=== PATIENT | male | born 1950 | race Caucasian/White ===

== ENCOUNTER 2021-04-22 09:30 | Inpatient (IN) ==
[2021-04-22] MEDS ORDERED: SODIUM CHLORIDE 0.9% 1,000 ML IV STA (10:15)
[2021-04-22 11:51] LABS: Alanine Aminotransferase 27 U/L (16-61); Albumin 4.1 G/DL (3.4-5.0); Alkaline Phosphatase 82 U/L (45-117); Aspartate Amino Transferase 35 U/L (0-37); Blood Urea Nitrogen 12 MG/DL (7-18); Calcium 9.6 MG/DL (8.5-10.1); Carbon Dioxide 26 MMOL/L (21-32); Estimated Glom Filtration Rate 101 ML/MIN; Glucose 105 MG/DL (74-106); Osmolality,Calculated 272.8 MOS/KG (273-304); Potassium 4.1 MMOL/L (3.5-5.1); Sodium 137 MMOL/L (136-145); Total Protein 7.5 G/DL (6.4-8.2)
[2021-04-22 11:53] LABS: Basophils % 0.3 % (0.0-0.8); Hematocrit 51.8 VOL% (42.0-52.0); Hemoglobin 17.9 GM/DL (14.0-18.0); Immature Granulocytes % 0.3 %; Immature Granulocytes Absolute 0.03 #; Lymphocytes # 1.1 10*3/uL (1.4-4.0); Lymphocytes % 10.7 % (21.2-54.2); Mean Corpuscular HGB Conc 34.6 GM/DL (32-36); Mean Corpuscular Volume 97.4 FL (87-102); Mean Platelet Volume 9.9 FL (9.6-12.0); Neutrophils % 81.7 % (38.7-73.9); Platelet Count 260 T/CUMM (130-400); Red Blood Count 5.32 MC/CUMM (3.8-5.5); Red Cell Distribution Width 12.8 % (9.3-17.3); Risk Ratio 2.53; VLDL Cholesterol 15.2 MG/DL; White Blood Count 9.8 T/CUMM (4-12)
[2021-04-22 11:55] LABS: PT Patient Result 11.6 SECS (10.5-12.0); Partial Thromboplastin Time 31.6 SECS (23.8-32.1)
[2021-04-22] MEDS ORDERED: DEXTROSE 10% 250 ML BAG IV PRN (12:42)
[2021-04-22] MEDS ORDERED: ACETAMINOPHEN 325 MG TABLET PO PRN (12:42)
[2021-04-22] MEDS ORDERED: DOCUSATE SODIUM 100 MG CAPSULE PO PRN (12:42)
[2021-04-22] MEDS ORDERED: ONDANSETRON 4 MG/2 ML VIAL IV PRN (12:42)
[2021-04-22] MEDS ORDERED: GLUCAGON 1 MG VIAL IM PRN (12:42)
[2021-04-22] MEDS ORDERED: hydrALAZINE 20 MG/1 ML VIAL IV PRN (13:02)
[2021-04-22 14:55] LABS: Amorphous Crystals,Urine Occasional /HPF (Few); Bilirubin,Urine Negative (Negative); Blood, Urine Small mg/dL (Negative); Glucose,Urine (UA) Negative (Negative); Ketones,Urine 20 mg/dL (Negative); Mucus,Urine Occasional /LPF (Occasional); Nitrite,Urine Negative (Negative); Protein,Urine Negative; RBC,Urine 2 /HPF (0-4); Squamous Epithelial Cell,Urine Occasional /HPF (0-10); Urine Appearance Slightly Hazy (Clear); Urine Color Yellow (Yellow); Urine Specific Gravity 1.019 (1.001-1.035); Urine Urobilinogen < 2.0 EU/DL (<2.0)
[2021-04-22] MEDS: LACTATED RINGERS 1,000 ML IV SCH (17:00)
[2021-04-22 17:21] LABS: Barbiturates Screen,Urine Negative (Negative); Benzodiazepines Screen,Urine Negative (Negative); Cannabinoid Screen,Urine Negative (Negative); Opiate Screen,Urine Negative (Negative); Phencyclidine Screen,Urine Negative (Negative)
[2021-04-22] MEDS: INSULIN LISPRO 100 UNIT/ML SUBCUT SCH ×2 (18:59→21:48)
[2021-04-22] MEDS: ENOXAPARIN 40 MG/0.4 ML SYRINGE SUBCUT SCH (22:04)
[2021-04-22] MEDS: ATORVASTATIN 40 MG TABLET PO SCH (22:04)
[2021-04-23 05:33] LABS: Basophils % 0.5 % (0.0-0.8); Eosinophils # 0.1 10*3/uL (0.0-0.87); Eosinophils % 0.9 % (0.00-10.9); Hemoglobin 16.5 GM/DL (14.0-18.0); Immature Granulocytes % 0.4 %; Immature Granulocytes Absolute 0.03 #; Lymphocytes # 2.3 10*3/uL (1.4-4.0); Lymphocytes % 27.8 % (21.2-54.2); Mean Corpuscular HGB Conc 34.4 GM/DL (32-36); Mean Platelet Volume 9.7 FL (9.6-12.0); Monocytes % 8.9 % (1.7-12.7); Neutrophils % 61.5 % (38.7-73.9); Platelet Count 235 T/CUMM (130-400); White Blood Count 8.2 T/CUMM (4-12)
[2021-04-23 05:51] LABS: Calcium 8.8 MG/DL (8.5-10.1); Osmolality,Calculated 275.7 MOS/KG (273-304); Potassium 4.3 MMOL/L (3.5-5.1)
[2021-04-23] MEDS ORDERED: INFLUENZA VIRUS VACCINE 0.5 ML SYRINGE IM ONE (09:00)
[2021-04-23] MEDS: INSULIN LISPRO 100 UNIT/ML SUBCUT SCH ×4 (10:13→21:17)
[2021-04-23] MEDS: ASPIRIN 325 MG TABLET PO SCH (10:13)
[2021-04-23] MEDS ORDERED: ALBUTEROL/IPRATROPIUM 3 ML NEB RESP TX PRN (10:22)
[2021-04-23] MEDS: LACTATED RINGERS 1,000 ML IV SCH ×2 (17:01→20:15)
[2021-04-23] MEDS: ENOXAPARIN 40 MG/0.4 ML SYRINGE SUBCUT SCH (20:37)
[2021-04-23] MEDS: ATORVASTATIN 40 MG TABLET PO SCH (20:38)
[2021-04-24 06:38] LABS: Basophils % 0.5 % (0.0-0.8); Eosinophils # 0.2 10*3/uL (0.0-0.87); Eosinophils % 2.8 % (0.00-10.9); Hematocrit 43.3 VOL% (42.0-52.0); Hemoglobin 14.7 GM/DL (14.0-18.0); Immature Granulocytes % 0.5 %; Immature Granulocytes Absolute 0.03 #; Lymphocytes # 1.7 10*3/uL (1.4-4.0); Lymphocytes % 25.5 % (21.2-54.2); Mean Corpuscular HGB Conc 33.9 GM/DL (32-36); Mean Corpuscular Volume 98.4 FL (87-102); Mean Platelet Volume 9.4 FL (9.6-12.0); Monocytes % 9.1 % (1.7-12.7); Neutrophils % 61.6 % (38.7-73.9); Platelet Count 198 T/CUMM (130-400); Red Cell Distribution Width 12.7 % (9.3-17.3); White Blood Count 6.5 T/CUMM (4-12)
[2021-04-24 06:57] LABS: Calcium 8.4 MG/DL (8.5-10.1); Osmolality,Calculated 278.5 MOS/KG (273-304); Potassium 3.5 MMOL/L (3.5-5.1)
[2021-04-24] MEDS: INSULIN LISPRO 100 UNIT/ML SUBCUT SCH ×4 (07:23→20:25)
[2021-04-24] MEDS: LACTATED RINGERS 1,000 ML IV SCH ×2 (08:22→17:05)
[2021-04-24] MEDS: PANTOPRAZOLE 40 MG TABLET PO SCH (09:00)
[2021-04-24] MEDS: ASPIRIN 325 MG TABLET PO SCH (09:00)
[2021-04-24] MEDS: NICOTINE 21 MG/24 HR PATCH TRANSDERM SCH (09:01)
[2021-04-24] MEDS: ATORVASTATIN 40 MG TABLET PO SCH (20:25)
[2021-04-24] MEDS: ENOXAPARIN 40 MG/0.4 ML SYRINGE SUBCUT SCH (20:26)
[2021-04-25 05:29] LABS: Calcium 8.6 MG/DL (8.5-10.1); Osmolality,Calculated 278.4 MOS/KG (273-304); Potassium 3.7 MMOL/L (3.5-5.1)
[2021-04-25] MEDS: INSULIN LISPRO 100 UNIT/ML SUBCUT SCH ×4 (07:14→20:03)
[2021-04-25] MEDS: PANTOPRAZOLE 40 MG TABLET PO SCH (09:06)
[2021-04-25] MEDS: ASPIRIN 325 MG TABLET PO SCH (09:06)
[2021-04-25] MEDS: NICOTINE 21 MG/24 HR PATCH TRANSDERM SCH (09:07)
[2021-04-25] MEDS: LACTATED RINGERS 1,000 ML IV SCH (12:45)
[2021-04-25] MEDS: HYDROCORTISONE 1% CREAM 28 GM TUBE TOP SCH ×2 (18:00→20:09)
[2021-04-25] MEDS: ATORVASTATIN 40 MG TABLET PO SCH (20:06)
[2021-04-25] MEDS: ENOXAPARIN 40 MG/0.4 ML SYRINGE SUBCUT SCH (20:06)
[2021-04-26 05:47] LABS: Basophils # 0.1 10*3/uL (0.0-0.2); Basophils % 0.7 % (0.0-0.8); Eosinophils # 0.3 10*3/uL (0.0-0.87); Eosinophils % 4.5 % (0.00-10.9); Hematocrit 42.7 VOL% (42.0-52.0); Hemoglobin 14.6 GM/DL (14.0-18.0); Immature Granulocytes % 0.4 %; Immature Granulocytes Absolute 0.03 #; Lymphocytes # 1.9 10*3/uL (1.4-4.0); Mean Corpuscular HGB Conc 34.2 GM/DL (32-36); Mean Corpuscular Volume 98.8 FL (87-102); Mean Platelet Volume 10.1 FL (9.6-12.0); Neutrophils % 60.4 % (38.7-73.9); Platelet Count 215 T/CUMM (130-400); Red Blood Count 4.32 MC/CUMM (3.8-5.5); Red Cell Distribution Width 12.6 % (9.3-17.3); White Blood Count 7.3 T/CUMM (4-12)
[2021-04-26 06:11] LABS: Calcium 8.3 MG/DL (8.5-10.1); Osmolality,Calculated 278.4 MOS/KG (273-304); Potassium 3.5 MMOL/L (3.5-5.1)
[2021-04-26] MEDS: PANTOPRAZOLE 40 MG TABLET PO SCH (09:04)
[2021-04-26] MEDS: HYDROCORTISONE 1% CREAM 28 GM TUBE TOP SCH (09:04)
[2021-04-26] MEDS: ASPIRIN 325 MG TABLET PO SCH (09:04)
[2021-04-26] MEDS: NICOTINE 21 MG/24 HR PATCH TRANSDERM SCH (09:21)
[2021-04-26] MEDS: INSULIN LISPRO 100 UNIT/ML SUBCUT SCH ×4 (10:38→21:24)
[2021-04-26] MEDS: CALAMINE LOTION 180 ML BOTTLE TOP PRN (13:38)
[2021-04-26] MEDS: diphenhydrAMINE CAP 25 MG CAPSULE PO PRN (13:38)
[2021-04-26] MEDS: FUROSEMIDE 40 MG TABLET PO SCH (16:44)
[2021-04-26] MEDS: ATORVASTATIN 40 MG TABLET PO SCH (21:14)
[2021-04-26] MEDS: ENOXAPARIN 40 MG/0.4 ML SYRINGE SUBCUT SCH (21:14)
[2021-04-27] MEDS: diphenhydrAMINE CAP 25 MG CAPSULE PO PRN ×2 (02:04→13:15)
[2021-04-27] MEDS: CALAMINE LOTION 180 ML BOTTLE TOP PRN (02:05)
[2021-04-27] MEDS: INSULIN LISPRO 100 UNIT/ML SUBCUT SCH ×4 (07:28→21:42)
[2021-04-27] MEDS: ASPIRIN 325 MG TABLET PO SCH (08:43)
[2021-04-27] MEDS: FUROSEMIDE 40 MG TABLET PO SCH (08:44)
[2021-04-27] MEDS: PANTOPRAZOLE 40 MG TABLET PO SCH (08:44)
[2021-04-27] MEDS: NICOTINE 21 MG/24 HR PATCH TRANSDERM SCH (10:11)
[2021-04-27] MEDS: ATORVASTATIN 40 MG TABLET PO SCH (20:46)
[2021-04-27] MEDS: ENOXAPARIN 40 MG/0.4 ML SYRINGE SUBCUT SCH (20:46)
[2021-04-28 05:53] LABS: Basophils # 0.1 10*3/uL (0.0-0.2); Basophils % 0.8 % (0.0-0.8); Eosinophils # 0.3 10*3/uL (0.0-0.87); Eosinophils % 4.3 % (0.00-10.9); Hematocrit 45.9 VOL% (42.0-52.0); Hemoglobin 15.8 GM/DL (14.0-18.0); Immature Granulocytes % 0.3 %; Immature Granulocytes Absolute 0.02 #; Lymphocytes % 25.4 % (21.2-54.2); Mean Corpuscular HGB Conc 34.4 GM/DL (32-36); Mean Corpuscular Volume 96.4 FL (87-102); Mean Platelet Volume 9.9 FL (9.6-12.0); Monocytes % 7.6 % (1.7-12.7); Neutrophils % 61.6 % (38.7-73.9); Platelet Count 245 T/CUMM (130-400); Red Blood Count 4.76 MC/CUMM (3.8-5.5); Red Cell Distribution Width 12.5 % (9.3-17.3)
[2021-04-28 06:14] LABS: Calcium 8.8 MG/DL (8.5-10.1); Osmolality,Calculated 278.5 MOS/KG (273-304); Potassium 3.7 MMOL/L (3.5-5.1)
[2021-04-28] MEDS: INSULIN LISPRO 100 UNIT/ML SUBCUT SCH ×4 (06:53→21:07)
[2021-04-28] MEDS: NICOTINE 21 MG/24 HR PATCH TRANSDERM SCH (09:20)
[2021-04-28] MEDS: FUROSEMIDE 40 MG TABLET PO SCH (09:22)
[2021-04-28] MEDS: ASPIRIN 325 MG TABLET PO SCH (09:22)
[2021-04-28] MEDS: PANTOPRAZOLE 40 MG TABLET PO SCH (09:23)
[2021-04-28] MEDS: diphenhydrAMINE CAP 25 MG CAPSULE PO PRN ×2 (09:23→21:06)
[2021-04-28] MEDS: ATORVASTATIN 40 MG TABLET PO SCH (21:06)
[2021-04-29 05:05] LABS: Basophils # 0.1 10*3/uL (0.0-0.2); Basophils % 0.6 % (0.0-0.8); Eosinophils # 0.3 10*3/uL (0.0-0.87); Eosinophils % 2.7 % (0.00-10.9); Hematocrit 44.9 VOL% (42.0-52.0); Hemoglobin 15.4 GM/DL (14.0-18.0); Immature Granulocytes % 0.3 %; Immature Granulocytes Absolute 0.03 #; Lymphocytes # 1.9 10*3/uL (1.4-4.0); Lymphocytes % 18.7 % (21.2-54.2); Mean Corpuscular HGB Conc 34.3 GM/DL (32-36); Mean Corpuscular Volume 97.2 FL (87-102); Mean Platelet Volume 10.3 FL (9.6-12.0); Monocytes % 8.1 % (1.7-12.7); Neutrophils % 69.6 % (38.7-73.9); Platelet Count 246 T/CUMM (130-400); Red Blood Count 4.62 MC/CUMM (3.8-5.5); Red Cell Distribution Width 12.5 % (9.3-17.3); White Blood Count 10.2 T/CUMM (4-12)
[2021-04-29 05:35] LABS: Calcium 8.8 MG/DL (8.5-10.1); Osmolality,Calculated 276.7 MOS/KG (273-304); Potassium 3.2 MMOL/L (3.5-5.1)
[2021-04-29] MEDS ORDERED: POTASSIUM CHLORIDE 20 MEQ TABLET PO ONE (07:30)
[2021-04-29] MEDS: INSULIN LISPRO 100 UNIT/ML SUBCUT SCH ×4 (07:40→20:44)
[2021-04-29] MEDS: ASPIRIN EC 81 MG TABLET PO SCH (08:01)
[2021-04-29] MEDS: PANTOPRAZOLE 40 MG TABLET PO SCH (08:01)
[2021-04-29] MEDS: CLOPIDOGREL 75 MG TABLET PO SCH (08:01)
[2021-04-29] MEDS: FUROSEMIDE 40 MG TABLET PO SCH (08:01)
[2021-04-29] MEDS: NICOTINE 21 MG/24 HR PATCH TRANSDERM SCH (08:02)
[2021-04-29] MEDS: CALAMINE LOTION 180 ML BOTTLE TOP PRN (08:06)
[2021-04-29] MEDS: ATORVASTATIN 40 MG TABLET PO SCH (20:08)
[2021-04-29] MEDS: diphenhydrAMINE CAP 25 MG CAPSULE PO PRN (20:08)
[2021-04-30] MEDS: INSULIN LISPRO 100 UNIT/ML SUBCUT SCH ×4 (07:00→20:53)
[2021-04-30 07:06] LABS: Calcium 9.1 MG/DL (8.5-10.1); Osmolality,Calculated 274.8 MOS/KG (273-304); Potassium 3.6 MMOL/L (3.5-5.1)
[2021-04-30] MEDS: NICOTINE 21 MG/24 HR PATCH TRANSDERM SCH (08:36)
[2021-04-30] MEDS: CLOPIDOGREL 75 MG TABLET PO SCH (08:36)
[2021-04-30] MEDS: ASPIRIN EC 81 MG TABLET PO SCH (08:36)
[2021-04-30] MEDS: FUROSEMIDE 40 MG TABLET PO SCH (08:36)
[2021-04-30] MEDS: PANTOPRAZOLE 40 MG TABLET PO SCH (08:36)
[2021-04-30] MEDS: CALAMINE LOTION 180 ML BOTTLE TOP PRN (15:01)
[2021-04-30] MEDS: ATORVASTATIN 40 MG TABLET PO SCH (20:53)
[2021-05-01] MEDS: INSULIN LISPRO 100 UNIT/ML SUBCUT SCH ×2 (07:22→11:30)
[2021-05-01] MEDS: NICOTINE 21 MG/24 HR PATCH TRANSDERM SCH (08:36)
[2021-05-01] MEDS: FUROSEMIDE 40 MG TABLET PO SCH (08:36)
[2021-05-01] MEDS: PANTOPRAZOLE 40 MG TABLET PO SCH (08:36)
[2021-05-01] MEDS: CLOPIDOGREL 75 MG TABLET PO SCH (08:36)
[2021-05-01] MEDS: ASPIRIN EC 81 MG TABLET PO SCH (08:36)
[2021-05-01 11:32] VITALS: BP 126/65
== END 2021-05-01 14:08 | disposition swing bed (61) | DRG 65 ==
LOC: N.ED 09:30 → N.EDINP 12:42 → SUATTDRO 12:42 → N.3E 19:34
PROVIDERS: ADMIT Internal Medicine; ATTEND Internal Medicine

== ENCOUNTER 2021-07-11 15:37 | Inpatient (IN) ==
[2021-07-11 18:49] LABS: Urine Appearance Cloudy (Clear); Urine Color Red (Yellow)
[2021-07-11 18:53] LABS: Urine Specific Gravity >= 1.030 (1.001-1.035)
[2021-07-11 18:54] LABS: Bilirubin,Urine Small mg/dL (Negative); Blood, Urine Large mg/dL (Negative); Glucose,Urine (UA) Negative (Negative); Ketones,Urine Negative (Negative); Nitrite,Urine Positive (Negative); Protein,Urine >=300 mg/dL (Negative)
[2021-07-11 18:56] LABS: Mucus,Urine Many /LPF (Occasional); RBC,Urine 25773 /HPF (0-4)
[2021-07-11 19:01] LABS: Basophils # 0.1 10*3/uL (0.0-0.2); Basophils % 0.7 % (0.0-0.8); Eosinophils # 0.1 10*3/uL (0.0-0.87); Eosinophils % 1.2 % (0.00-10.9); Hematocrit 43.6 VOL% (42.0-52.0); Hemoglobin 14.7 GM/DL (14.0-18.0); Immature Granulocytes % 0.4 %; Immature Granulocytes Absolute 0.03 #; Lymphocytes # 1.8 10*3/uL (1.4-4.0); Lymphocytes % 21.4 % (21.2-54.2); Mean Corpuscular HGB Conc 33.7 GM/DL (32-36); Mean Corpuscular Volume 94.6 FL (87-102); Mean Platelet Volume 9.3 FL (9.6-12.0); Monocytes % 7.7 % (1.7-12.7); Neutrophils % 68.6 % (38.7-73.9); Platelet Count 260 T/CUMM (130-400); Red Blood Count 4.61 MC/CUMM (3.8-5.5); Red Cell Distribution Width 12.3 % (9.3-17.3); White Blood Count 8.4 T/CUMM (4-12)
[2021-07-11 19:10] LABS: Albumin 3.4 G/DL (3.4-5.0); Bilirubin,Total 0.4 MG/DL (0.20-1.00); Calcium 9.2 MG/DL (8.5-10.1); Potassium 3.4 MMOL/L (3.5-5.1); Total Protein 7.3 G/DL (6.4-8.2)
[2021-07-11 19:21] LABS: PT Patient Result 11.3 SECS (10.5-12.0)
[2021-07-11] MEDS ORDERED: cefTRIAXone 1,000 MG in SODIUM CHLORIDE 0.9% 100 ML IV STA (19:29)
[2021-07-11] MEDS ORDERED: ZALEPLON 5 MG CAPSULE PO PRN (21:27)
[2021-07-11] MEDS ORDERED: MORPHINE 2 MG/1 ML SYRINGE IV PRN (21:27)
[2021-07-11] MEDS ORDERED: GLUCAGON 1 MG VIAL IM PRN (21:27)
[2021-07-11] MEDS ORDERED: NICOTINE 21 MG/24 HR PATCH TRANSDERM PRN (21:27)
[2021-07-11] MEDS ORDERED: hydrALAZINE 20 MG/1 ML VIAL IV PRN (21:27)
[2021-07-11] MEDS ORDERED: ONDANSETRON 4 MG/2 ML VIAL IV PRN (21:27)
[2021-07-11] MEDS ORDERED: DOCUSATE SODIUM 100 MG CAPSULE PO PRN (21:27)
[2021-07-11] MEDS ORDERED: guaiFENesin/DM ER 600-30 MG TABLET PO PRN (21:27)
[2021-07-11] MEDS ORDERED: diphenhydrAMINE CAP 25 MG CAPSULE PO PRN (21:27)
[2021-07-11] MEDS ORDERED: SODIUM CHLORIDE 0.9% 1,000 ML IV SCH (21:30)
[2021-07-11] MEDS ORDERED: DEXTROSE 10% 250 ML BAG IV PRN (21:34)
[2021-07-12] MEDS ORDERED: POTASSIUM CHLORIDE 20 MEQ TABLET PO ONE ×2 (00:38→08:25)
[2021-07-12 06:02] LABS: Basophils % 0.5 % (0.0-0.8); Eosinophils # 0.2 10*3/uL (0.0-0.87); Eosinophils % 2.4 % (0.00-10.9); Hematocrit 40.1 VOL% (42.0-52.0); Hemoglobin 13.2 GM/DL (14.0-18.0); Immature Granulocytes % 0.3 %; Immature Granulocytes Absolute 0.02 #; Lymphocytes # 2.1 10*3/uL (1.4-4.0); Lymphocytes % 27.1 % (21.2-54.2); Mean Corpuscular HGB Conc 32.9 GM/DL (32-36); Mean Corpuscular Volume 95.2 FL (87-102); Mean Platelet Volume 9.6 FL (9.6-12.0); Monocytes % 9.2 % (1.7-12.7); Neutrophils % 60.5 % (38.7-73.9); Platelet Count 249 T/CUMM (130-400); Red Blood Count 4.21 MC/CUMM (3.8-5.5); Red Cell Distribution Width 12.5 % (9.3-17.3); White Blood Count 7.6 T/CUMM (4-12)
[2021-07-12 06:27] LABS: Calcium 9.1 MG/DL (8.5-10.1); Osmolality,Calculated 285.8 MOS/KG (273-304); Potassium 3.5 MMOL/L (3.5-5.1)
[2021-07-12] MEDS ORDERED: TAMSULOSIN 0.4 MG CAPSULE PO SCH (09:00)
[2021-07-12] MEDS: PANTOPRAZOLE 40 MG TABLET PO SCH (09:16)
[2021-07-12] MEDS: FUROSEMIDE 40 MG TABLET PO SCH (09:16)
[2021-07-12] MEDS: DUTASTERIDE 0.5 MG CAPSULE PO SCH (11:50)
[2021-07-12] MEDS: TAMSULOSIN 0.4 MG CAPSULE PO SCH (20:26)
[2021-07-12] MEDS: ATORVASTATIN 40 MG TABLET PO SCH (20:26)
[2021-07-12] MEDS: cefTRIAXone 1,000 MG in SODIUM CHLORIDE 0.9% 100 ML IV SCH (20:32)
[2021-07-13 06:16] LABS: Basophils % 0.4 % (0.0-0.8); Eosinophils # 0.2 10*3/uL (0.0-0.87); Eosinophils % 3.3 % (0.00-10.9); Hemoglobin 12.9 GM/DL (14.0-18.0); Immature Granulocytes % 0.4 %; Immature Granulocytes Absolute 0.03 #; Lymphocytes # 2.1 10*3/uL (1.4-4.0); Lymphocytes % 29.3 % (21.2-54.2); Mean Corpuscular HGB Conc 33.9 GM/DL (32-36); Mean Corpuscular Volume 94.3 FL (87-102); Mean Platelet Volume 9.7 FL (9.6-12.0); Monocytes % 8.5 % (1.7-12.7); Neutrophils % 58.1 % (38.7-73.9); Platelet Count 233 T/CUMM (130-400); Red Blood Count 4.03 MC/CUMM (3.8-5.5); Red Cell Distribution Width 12.2 % (9.3-17.3); White Blood Count 7.3 T/CUMM (4-12)
[2021-07-13 06:45] LABS: Osmolality,Calculated 276.5 MOS/KG (273-304); Potassium 3.6 MMOL/L (3.5-5.1)
[2021-07-13] MEDS ORDERED: POTASSIUM CHLORIDE 20 MEQ TABLET PO ONE (08:33)
[2021-07-13] MEDS: DUTASTERIDE 0.5 MG CAPSULE PO SCH (09:14)
[2021-07-13] MEDS: TAMSULOSIN 0.4 MG CAPSULE PO SCH ×2 (09:14→20:51)
[2021-07-13] MEDS: FUROSEMIDE 40 MG TABLET PO SCH (09:14)
[2021-07-13] MEDS: PANTOPRAZOLE 40 MG TABLET PO SCH (09:14)
[2021-07-13] MEDS: ATORVASTATIN 40 MG TABLET PO SCH (20:51)
[2021-07-13] MEDS: cefTRIAXone 1,000 MG in SODIUM CHLORIDE 0.9% 100 ML IV SCH (20:52)
[2021-07-14 05:09] LABS: Basophils # 0.1 10*3/uL (0.0-0.2); Basophils % 0.7 % (0.0-0.8); Eosinophils # 0.2 10*3/uL (0.0-0.87); Eosinophils % 3.4 % (0.00-10.9); Hematocrit 37.8 VOL% (42.0-52.0); Hemoglobin 12.8 GM/DL (14.0-18.0); Immature Granulocytes % 0.1 %; Immature Granulocytes Absolute 0.01 #; Lymphocytes # 2.2 10*3/uL (1.4-4.0); Lymphocytes % 32.2 % (21.2-54.2); Mean Corpuscular HGB Conc 33.9 GM/DL (32-36); Mean Corpuscular Volume 93.8 FL (87-102); Mean Platelet Volume 9.7 FL (9.6-12.0); Monocytes % 9.3 % (1.7-12.7); Neutrophils % 54.3 % (38.7-73.9); Platelet Count 224 T/CUMM (130-400); Red Blood Count 4.03 MC/CUMM (3.8-5.5); White Blood Count 6.7 T/CUMM (4-12)
[2021-07-14 05:38] LABS: Calcium 9.1 MG/DL (8.5-10.1); Osmolality,Calculated 279.4 MOS/KG (273-304)
[2021-07-14] MEDS: DUTASTERIDE 0.5 MG CAPSULE PO SCH (08:20)
[2021-07-14] MEDS: TAMSULOSIN 0.4 MG CAPSULE PO SCH ×2 (08:20→22:12)
[2021-07-14] MEDS: FUROSEMIDE 40 MG TABLET PO SCH (08:20)
[2021-07-14] MEDS: PANTOPRAZOLE 40 MG TABLET PO SCH (08:20)
[2021-07-14] MEDS: cefTRIAXone 1,000 MG in SODIUM CHLORIDE 0.9% 100 ML IV SCH (22:13)
[2021-07-14] MEDS: ATORVASTATIN 40 MG TABLET PO SCH (22:14)
[2021-07-15 05:03] LABS: Basophils # 0.1 10*3/uL (0.0-0.2); Basophils % 0.8 % (0.0-0.8); Eosinophils # 0.3 10*3/uL (0.0-0.87); Eosinophils % 3.5 % (0.00-10.9); Hematocrit 38.7 VOL% (42.0-52.0); Hemoglobin 13.1 GM/DL (14.0-18.0); Immature Granulocytes % 0.4 %; Immature Granulocytes Absolute 0.03 #; Lymphocytes # 2.1 10*3/uL (1.4-4.0); Lymphocytes % 26.5 % (21.2-54.2); Mean Corpuscular HGB Conc 33.9 GM/DL (32-36); Mean Corpuscular Volume 94.4 FL (87-102); Mean Platelet Volume 9.6 FL (9.6-12.0); Monocytes % 10.4 % (1.7-12.7); Neutrophils % 58.4 % (38.7-73.9); Platelet Count 236 T/CUMM (130-400); Red Cell Distribution Width 12.1 % (9.3-17.3); White Blood Count 7.9 T/CUMM (4-12)
[2021-07-15 05:38] LABS: Calcium 9.4 MG/DL (8.5-10.1); Osmolality,Calculated 281.4 MOS/KG (273-304); Potassium 4.1 MMOL/L (3.5-5.1)
[2021-07-15 07:41] VITALS: BP 109/54
[2021-07-15] MEDS: DUTASTERIDE 0.5 MG CAPSULE PO SCH (08:45)
[2021-07-15] MEDS: FUROSEMIDE 40 MG TABLET PO SCH (08:46)
[2021-07-15] MEDS: PANTOPRAZOLE 40 MG TABLET PO SCH (08:46)
[2021-07-15] MEDS: TAMSULOSIN 0.4 MG CAPSULE PO SCH (08:46)
== END 2021-07-15 11:55 | disposition home or self-care (01) | DRG 813 ==
LOC: N.ED 15:37 → N.EDINP 21:27 → SUATTDRO 21:27 → N.EDINP 22:24 → N.3E 22:33
PROVIDERS: ADMIT Internal Medicine; ATTEND Internal Medicine